=== PATIENT | female | born 1975 | race Caucasian/White ===

== ENCOUNTER 2018-12-13 23:19 | Emergency (ER) | payer SELFPAY ==
--- NOTE | 2018-12-14 02:26 | ER Document Report ---
ED Medical Screen (RME) - General Chief Complaint: Altered Mental Status Stated Complaint: Confusion Time Seen by Provider: 12/14/18 02:20 Notes: 43-year-old female with chief complaint of "something being off". She states for the past 2 weeks she has apparently slept, she feels extremely sluggish, she feels like she cannot think straight. Mother and boyfriend at bedside states she has been talking about "seeing a man who is not talking to her". Patient insists this man is real. She reports suicidal thoughts. She drinks alcohol daily but has not had any since yesterday, she is hypothyroid but states she has not been on her medication for weeks. She states she has had withdrawals from alcohol in the past but denies seizure history. Does not feel that she is withdrawing at this time. States she thinks she might have "a parasite" or something. TRAVEL OUTSIDE OF THE [place] IN LAST 30 DAYS: No - Related Data Allergies/Adverse Reactions: No Known Allergies Allergy (Verified 12/13/18 23:23) Past Medical History Endocrine Medical History: Reports: Hx Hypothyroidism GI Medical History: Reports: Hx Gastroesophageal Reflux Disease - Immunizations Hx Diphtheria, Pertussis, Tetanus Vaccination: No Physical Exam - Vital signs Vitals: Temp Pulse Resp BP Pulse Ox 98.0 F 89 20 124/79 98 12/14/18 00:27 12/14/18 00:27 12/14/18 00:27 12/14/18 00:27 12/14/18 00:27 - General General appearance: Alert In distress: None - Psychological Associated symptoms: Other - Very flat affect at first and then patient started to quietly cry Course - Re-evaluation Re-evalutation: Because of reported complaints including suicidal ideation patient change to triage level 2 I have greeted and performed a rapid initial assessment of this patient. A comprehensive ED assessment and evaluation of the patient, analysis of test results and completion of the medical decision making process will be conducted by additional ED providers. - Vital Signs Vital signs: Temp Pulse Resp BP Pulse Ox 98.0 F 89 20 124/79 98 12/14/18 00:27 12/14/18 00:27 12/14/18 00:27 12/14/18 00:27 12/14/18 00:27
[2018-12-14 03:04] LABS: ABSOLUTE BASOPHILS # (AUTO) 0.1 10^3/uL (0.0-0.2); ABSOLUTE EOSINOPHILS # (AUTO) 0.3 10^3/uL (0.0-0.6); ABSOLUTE LYMPHOCYTES (AUTO) 1.9 10^3/uL (0.5-4.7); ABSOLUTE MONOCYTES (AUTO) 0.4 10^3/uL (0.1-1.4); ABSOLUTE NEUT (AUTO) 3.4 10^3/uL (1.7-8.2); BASOPHILS % (AUTO) 0.8 % (0-2); EOSINOPHILS % (AUTO) 5.2 % (0-6); HEMATOCRIT 43.5 % (36.0-47.0); HEMOGLOBIN 14.9 g/dL (12.0-15.5); LYMPHOCYTES % (AUTO) 30.8 % (13-45); MEAN CORPUSCULAR HEMOGLOBIN 32.3 pg (27.0-33.4); MEAN CORPUSCULAR HGB CONC 34.3 g/dL (32.0-36.0); MEAN CORPUSCULAR VOLUME 94 fl (80-97); MONOCYTES % (AUTO) 7.4 % (3-13); PLATELET COUNT 240 10^3/uL (150-450); RED BLOOD COUNT 4.63 10^6/uL (3.72-5.28); RED CELL DISTRIBUTION WIDTH 13.3 % (11.5-14.0); SEGMENTED NEUTROPHILS % (AUTO) 55.8 % (42-78); TOTAL CELLS COUNTED % (AUTO) 100 %; WHITE BLOOD COUNT 6.1 10^3/uL (4.0-10.5)
[2018-12-14 03:26] LABS: ACETAMINOPHEN < 10 ug/mL (10-30); ALANINE AMINOTRANSFERASE 27 U/L (9-52); ALBUMIN 4.6 g/dL (3.5-5.0); ALCOHOL < 10 mg/dL (NONE DETECTED); ALKALINE PHOSPHATASE 64 U/L (38-126); ANION GAP 9 (5-19); ASPARTATE AMINO TRANSFERASE 20 U/L (14-36); BILIRUBIN,DIRECT 0.3 mg/dL (0.0-0.4); BILIRUBIN,TOTAL 0.4 mg/dL (0.2-1.3); BLOOD UREA NITROGEN 9 mg/dL (7-20); CALCIUM 9.7 mg/dL (8.4-10.2); CARBON DIOXIDE 26 mmol/L (22-30); CHLORIDE 105 mmol/L (98-107); GLUCOSE 104 mg/dL (75-110); POTASSIUM 3.8 mmol/L (3.6-5.0); SALICYLATE < 1.0 mg/dL (2.0-20.0); SODIUM 139.7 mmol/L (137-145); TOTAL PROTEIN 7.6 g/dL (6.3-8.2)
--- NOTE | 2018-12-14 03:40 | ER Document Report ---
ED General - General Chief Complaint: Altered Mental Status Stated Complaint: Confusion Time Seen by Provider: 12/14/18 02:20 Primary Care Provider: RYAN JHAVERI MD [NO LOCAL MD] - Follow up in 3-5 days Notes: Patient is a 43-year-old female with history of hypothyroidism that presents to the emergency department for chief complaint of fatigue, palpitations, confusion. Patient states that over the past 10 days she has been having symptoms including fatigue, nausea, depressive thoughts, and "borderline suicidal thoughts", she has had some nasal congestion as well, she is noticed that her legs have been swelling, and she has had a hallucination that is intermittent, where she sees what appears to be a custom framing specialist in the room, but is not actually there. She does states she drinks alcohol on a daily basis about 32 ounces of wine, her last drink was yesterday around 3:30 PM. She denies prior history of alcohol withdrawal. She does take levothyroxine, but does not remember the last time she took it, could have been a few weeks ago or longer. She states that she is forgetful and does not always take it. Even when she was taking it more regularly she missed several doses on a regular basis. She denies having any chest pain, shortness of breath, difficulty breathing, abdominal pain, dysuria or hematuria. After talking with family members further, and with the patient, they told me that she has been drinking half a bottle to a bottle of NyQuil on almost a daily basis for 2 months now, in addition to her alcohol use. They have noticed that she has been more depressed, and she has been having more arguments recently as well. She does not recall why she started taking the NyQuil other than the may be try to help her sleep, and she feels that she is addicted to it at this point. Past Medical History: Hypothyroidism Past Surgical History: Nasal septoplasty Social History: Admits to smoking cigarettes daily, and daily alcohol use, denies illicit drug use. Family History: Reviewed and noncontributory for presenting illness Allergies: Reviewed, see documented allergy list. REVIEW OF SYSTEMS: Other than noted above, the 12 point review of systems was reviewed with the patient and were negative, all pertinent findings are included in the HPI. PHYSICAL EXAMINATION: Vital signs reviewed, nursing noted reviewed. GENERAL: Well-appearing, well-nourished and in no acute distress. HEAD: Atraumatic, normocephalic. EYES: Eyes appear normal, extraocular movements intact, sclera anicteric, conjunctiva are normal. ENT: nares patent, oropharynx clear without exudates. Moist mucous membranes. NECK: Normal range of motion, supple without lymphadenopathy, thyromegaly palpated LUNGS: Breath sounds clear to auscultation bilaterally and equal. No wheezes rales or rhonchi. HEART: Regular rate and rhythm without murmurs ABDOMEN: Soft, nontender, normoactive bowel sounds. No rebound, guarding, or rigidity. No masses appreciated. EXTREMITIES: Nontender, good range of motion, 1+ bilateral generalized edema in the lower extremities NEUROLOGICAL: No focal neurological deficits. Moves all extremities spontaneously Motor and sensory grossly intact on exam. PSYCH: Dysphoric mood, flat affect SKIN: Warm, Dry, normal turgor, no rashes or lesions noted on exposed skin TRAVEL OUTSIDE OF THE [place] IN LAST 30 DAYS: No - Related Data Allergies/Adverse Reactions: No Known Allergies Allergy (Verified 12/13/18 23:23) Past Medical History - Social History Smoking Status: Current Every Day Smoker Family History: Reviewed & Not Pertinent Endocrine Medical History: Reports: Hx Hypothyroidism GI Medical History: Reports: Hx Gastroesophageal Reflux Disease - Immunizations Hx Diphtheria, Pertussis, Tetanus Vaccination: No Physical Exam - Vital signs Vitals: Temp Pulse Resp BP Pulse Ox 98.0 F 89 20 124/79 98 12/14/18 00:27 12/14/18 00:27 12/14/18 00:27 12/14/18 00:27 12/14/18 00:27 Course - Re-evaluation Re-evalutation: Patient seen and examined, vital signs reviewed. Medical screening testing was ordered including bloodwork, EKG, and toxicology. Results of testing were reviewed. Testing demonstrated unremarkable blood work, negative acetaminophen, salicylate, or alcohol. Patient has been stable from a hemodynamic standpoint. Patient was having nausea was given Zofran, dosed her with IM thiamine 100 mg. After further discussion with the patient and the patient's family members, I do believe this patient is having hyper serotonin symptoms, but not serotonin syndrome, secondary to prolonged use of dextromethorphan, by way of NyQuil, on a daily basis for about 2 months, which likely explains the patient's depressive thoughts, insomnia, hallucinations, and patient is now addicted to this medication. She did wish to speak with the mental health team, for further discussion, and plan going forward for outpatient treatment. Patient was voluntarily willing to stay, to be observed due to having some suicidal thoughts, but they seem to be transient, but having intermittent hallucinations, which I believe is all secondary to taking dextromethorphan, and higher doses over the past 2 months. Despite not taking the patient's levothyroxine, her TSH and free T4 are within normal limits. At this point I feel that the patient is medically cleared and can be further evaluated from a psychiatric standpoint for final disposition from the emergency department. After being monitored in the emergency department, the patient did not want to stay any further, to wait for mental health evaluation, which I felt was reasonable, the patient was not actively having any hallucinations, she had family members at bedside, she was not having any suicidal thoughts or homicidal thoughts at this time, I discussed with her at length, the dangers of taking too much NyQuil specifically acetaminophen overdosing and toxicity, as well as dextromethorphan toxicity, she is advised she could have some withdrawal symptoms, she is also advised to not immediately discontinue drinking alcohol as alcohol withdrawal can be fatal, patient understood this plan of care, and advised to completely discontinue taking any NyQuil, DayQuil or other similar medications, and to follow-up with a primary care physician as well as her waitstaff captain regarding her thyroid functions *Note is created using voice recognition software and may contain spelling, syntax or grammatical errors. Laboratory 12/14/18 12/14/18 12/14/18 02:52 02:52 02:52 WBC 6.1 RBC 4.63 Hgb 14.9 Hct 43.5 MCV 94 MCH 32.3 MCHC 34.3 RDW 13.3 Plt Count 240 Seg Neutrophils % 55.8 Lymphocytes % 30.8 Monocytes % 7.4 Eosinophils % 5.2 Basophils % 0.8 Absolute Neutrophils 3.4 Absolute Lymphocytes 1.9 Absolute Monocytes 0.4 Absolute Eosinophils 0.3 Absolute Basophils 0.1 Sodium 139.7 Potassium 3.8 Chloride 105 Carbon Dioxide 26 Anion Gap 9 BUN 9 Creatinine 0.66 Est GFR ( Amer) > 60 Est GFR (Non-Af Amer) > 60 Glucose 104 Calcium 9.7 Total Bilirubin 0.4 Direct Bilirubin 0.3 Neonat Total Bilirubin Not Reportable Neonat Direct Bilirubin Not Reportable Neonat Indirect Bili Not Reportable AST 20 ALT 27 Alkaline Phosphatase 64 Total Protein 7.6 Albumin 4.6 TSH Free T4 Serum HCG, Qual NEGATIVE Salicylates < 1.0 L Acetaminophen < 10 L Serum Alcohol < 10 12/14/18 02:52 WBC RBC Hgb Hct MCV MCH MCHC RDW Plt Count Seg Neutrophils % Lymphocytes % Monocytes % Eosinophils % Basophils % Absolute Neutrophils Absolute Lymphocytes Absolute Monocytes Absolute Eosinophils Absolute Basophils Sodium Potassium Chloride Carbon Dioxide Anion Gap BUN Creatinine Est GFR ( Amer) Est GFR (Non-Af Amer) Glucose Calcium Total Bilirubin Direct Bilirubin Neonat Total Bilirubin Neonat Direct Bilirubin Neonat Indirect Bili AST ALT Alkaline Phosphatase Total Protein Albumin TSH 2.56 Free T4 1.16 Serum HCG, Qual Salicylates Acetaminophen Serum Alcohol - Vital Signs Vital signs: Temp Pulse Resp BP Pulse Ox 98.2 F 89 22 H 112/68 96 12/14/18 05:01 12/14/18 00:27 12/14/18 05:01 12/14/18 05:01 12/14/18 05:01 - Laboratory Result Diagrams: 12/14/18 02:52 12/14/18 02:52 Laboratory results interpreted by me: 12/14/18 02:52 Salicylates < 1.0 L Acetaminophen < 10 L - EKG Interpretation by Me Additional EKG results interpreted by me: EKG demonstrates sinus rhythm with a ventricular rate of 70 bpm, normal axis, normal intervals, no evidence of acute ischemia, this is compared to prior EKG from 03/16/2014, without significant change. Discharge - Discharge Clinical Impression: Dextromethorphan use disorder, moderate, dependence, Suicidal ideation Condition: Stable Disposition: HOME, SELF-CARE Instructions: Depression ([facility]) Additional Instructions: Please try to back down on your alcohol consumption, but do not stop abruptly as you can go through acute alcohol withdrawal which can be fatal. I strongly encourage you to discontinue drinking and taking any NyQuil, Robitussin or DayQuil, these medications can have adverse effects and can be addictive over time, and are likely explaining all of your symptoms that you have been having. Please follow-up with your waitstaff captain regarding your thyroid medication dosing as well. If you develop worsening symptoms, have further suicidal thoughts, or ideas, or hallucinations or confusion, do not hesitate to return to the emergency department immediately. Referrals: RYAN JHAVERI MD [NO LOCAL MD] - Follow up in 3-5 days
[2018-12-14 03:42] LABS: FREE T4 (FREE THYROXINE) 1.16 ng/dL (0.78-2.19)
[2018-12-14] MEDS ORDERED: ONDANSETRON 4 MG TAB.RAPDIS PO ONE (03:48)
[2018-12-14 03:56] LABS: THYROID STIMULATING HORMONE 2.56 uIU/mL (0.47-4.68)
[2018-12-14] MEDS ORDERED: THIAMINE HCL INJ 200 MG/2 ML VIAL IM ONE (04:15)
[2018-12-14 05:08] LABS: APPEARANCE,URINE CLEAR; BILIRUBIN,URINE NEGATIVE (NEGATIVE); COLOR,URINE STRAW; GLUCOSE, URINE NEGATIVE (NEGATIVE); KETONES,URINE NEGATIVE (NEGATIVE); LEUKOCYTE ESTERASE,URINE NEGATIVE (NEGATIVE); NITRITE,URINE NEGATIVE (NEGATIVE); PROTEIN,URINE NEGATIVE (NEGATIVE); URINE SPECIFIC GRAVITY 1.008; UROBILINOGEN,URINE NEGATIVE mg/dL (<2.0)
[2018-12-14 05:22] LABS: URINE AMPHETAMINES SCREEN NEGATIVE; URINE BARBITURATES SCREEN NEGATIVE; URINE BENZODIAZEPINES SCREEN NEGATIVE; URINE COCAINE SCREEN NEGATIVE; URINE MARIJUANA (THC) SCREEN NEGATIVE; URINE METHADONE SCREEN NEGATIVE; URINE PHENCYCLIDINE SCREEN NEGATIVE
[2018-12-14 05:47] VITALS: BP 112/68
--- NOTE | 2018-12-14 10:57 | EKG REPORT ---
SEVERITY:- BORDERLINE ECG - SINUS RHYTHM BORDERLINE INFERIOR Q WAVES : Confirmed by: Alona Nichole 14-Dec-2018 10:57:08
== END 2018-12-14 06:03 | disposition home or self-care (01) ==
LOC: ER 23:19
DX: R45.851 Suicidal ideations (principal); F11.20 Opioid dependence, uncomplicated; R41.82 Altered mental status, unspecified; R53.83 Other fatigue; R00.2 Palpitations; R11.0 Nausea; F17.210 Nicotine dependence, cigarettes, uncomplicated
CPT/HCPCS: 93005; 99285; 96372; 36415; 84439; 80307 ×4; 84443; 84703; 85025; 80053; 81001; 93010; S0119; J3411

== ENCOUNTER 2020-05-13 15:47 | Emergency (ER) | payer BC ==
--- NOTE | 2020-05-13 16:45 | ER Document Report ---
ED Medical Screen (RME) - General Chief Complaint: Leg Pain Stated Complaint: RIGHT LEG PAIN Time Seen by Provider: 05/13/20 16:36 TRAVEL OUTSIDE OF THE [place] IN LAST 30 DAYS: No - HPI Notes: 05/13/20 16:44 44-year-old female to the emergency department with complaints of right leg swelling and pain in the calf and posterior thigh for the past month. She states that it seems to be getting worse. Has been really bothering her today. She states that she is concerned for possible clot. She states she has significant family history in both a sibling, aunt, father for coagulopathies. She states that she is not on any exogenous hormones although she did take a one-time dose of fertility medicine that she cannot recall the name of. She states that she has not been recently traveling. She is not recently had surgery. She is never had a clot in her leg. I performed a brief medical screening exam on the patient determined that the patient needs further evaluation and management by main side provider. I have placed initial orders to help expedite care. - Related Data Allergies/Adverse Reactions: No Known Allergies Allergy (Verified 12/13/18 23:23) Past Medical History Endocrine Medical History: Reports: Hx Hypothyroidism Renal/ Medical History: Denies: Hx Peritoneal Dialysis GI Medical History: Reports: Hx Gastroesophageal Reflux Disease - Immunizations Hx Diphtheria, Pertussis, Tetanus Vaccination: No
[2020-05-13 17:21] LABS: ABSOLUTE EOSINOPHILS # (AUTO) 0.2 10^3/uL (0.0-0.6); ABSOLUTE LYMPHOCYTES (AUTO) 1.7 10^3/uL (0.5-4.7); ABSOLUTE MONOCYTES (AUTO) 0.3 10^3/uL (0.1-1.4); ABSOLUTE NEUT (AUTO) 1.6 10^3/uL (1.7-8.2); BASOPHILS % (AUTO) 0.9 % (0-2); EOSINOPHILS % (AUTO) 6.3 % (0-6); HEMATOCRIT 40.9 % (36.0-47.0); HEMOGLOBIN 14.4 g/dL (12.0-15.5); MEAN CORPUSCULAR HEMOGLOBIN 32.5 pg (27.0-33.4); MEAN CORPUSCULAR HGB CONC 35.1 g/dL (32.0-36.0); MEAN CORPUSCULAR VOLUME 93 fl (80-97); MONOCYTES % (AUTO) 8.1 % (3-13); PLATELET COUNT 252 10^3/uL (150-450); RED BLOOD COUNT 4.42 10^6/uL (3.72-5.28); RED CELL DISTRIBUTION WIDTH 12.3 % (11.5-14.0); SEGMENTED NEUTROPHILS % (AUTO) 40.7 % (42-78); TOTAL CELLS COUNTED % (AUTO) 100 %; WHITE BLOOD COUNT 3.9 10^3/uL (4.0-10.5)
[2020-05-13 17:27] LABS: PROTHROMBIN TIME 13.4 SEC (11.4-15.4)
[2020-05-13 17:28] LABS: PARTIAL THROMBOPLASTIN TIME 28.4 SEC (23.5-35.8)
[2020-05-13 17:40] LABS: ALBUMIN 4.4 g/dL (3.5-5.0); ALKALINE PHOSPHATASE 62 U/L (38-126); ANION GAP 7 (5-19); ASPARTATE AMINO TRANSFERASE 19 U/L (14-36); BILIRUBIN,DIRECT 0.3 mg/dL (0.0-0.4); BILIRUBIN,TOTAL 0.5 mg/dL (0.2-1.3); BLOOD UREA NITROGEN 13 mg/dL (7-20); CALCIUM 9.5 mg/dL (8.4-10.2); CARBON DIOXIDE 25 mmol/L (22-30); CHLORIDE 107 mmol/L (98-107); GLUCOSE 89 mg/dL (75-110); POTASSIUM 4.1 mmol/L (3.6-5.0); TOTAL PROTEIN 7.3 g/dL (6.3-8.2)
--- NOTE | 2020-05-13 18:40 | ER Document Report ---
ED Extremity Problem, Lower - General Chief Complaint: Leg Pain Stated Complaint: RIGHT LEG PAIN Time Seen by Provider: 05/13/20 16:36 Mode of Arrival: Ambulatory Information source: Patient Notes: 05/13/20 16:41 - ED Nursing Note by ALICIA TEJADA Num: [id number] : 1975 Patient Age: 44 Pt presents to ED for right leg pain. The pt reports the pain is "cramping". 2/5 pain. The pt has a family hx of blood clots so she was concerned she may have a blood clot. The pt has had the pain for 2-3 weeks. No recent travel. The pt has recently taking oral fertility medications. She has had 2 doses. The pt is aox4. Resps e/u. ED Medical Screen ([facility] notes) - General Chief Complaint: Leg Pain Stated Complaint: RIGHT LEG PAIN Time Seen by Provider: 05/13/20 16:36 TRAVEL OUTSIDE OF THE [place] IN LAST 30 DAYS: No - HPI Notes: 05/13/20 16:44 44-year-old female to the emergency department with complaints of right leg swelling and pain in the calf and posterior thigh for the past month. She states that it seems to be getting worse. Has been really bothering her today. She states that she is concerned for possible clot. She states she has significant family history in both a sibling, aunt, father for coagulopathies. She states that she is not on any exogenous hormones although she did take a one-time dose of fertility medicine that she cannot recall the name of. She states that she has not been recently traveling. She is not recently had surgery. She is never had a clot in her leg. I performed a brief medical screening exam on the patient determined that the patient needs further evaluation and management by main side provider. I have placed initial orders to help expedite care. 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 She reports she is had heart palpitations since 2011 with thyroid disease. She saw Dr. Camilo in [place] with a history of thyroidomegaly and nodule. Patient also had for last 3 days pain in her right calf to her right foot especially the arch of her foot. She denies any history of pulmonary embolism but her father brother and 2 aunts have had multiple clots in the past. One aunt from a cerebral aneurysm. A picture of her bilateral feet 3 days ago reveal edema of her right foot. TRAVEL OUTSIDE OF THE [place] IN LAST 30 DAYS: No - Related Data Allergies/Adverse Reactions: No Known Allergies Allergy (Verified 12/13/18 23:23) Home Medications: levothyroxine Past Medical History - General Information source: Patient - Social History Smoking Status: Current Some Day Smoker Cigarette use (# per day): Yes Chew tobacco use (# tins/day): No Smoking Education Provided: Yes Frequency of alcohol use: None Drug Abuse: None Lives with: Family Family History: Reviewed & Not Pertinent Patient has suicidal ideation: No Patient has homicidal ideation: No Endocrine Medical History: Reports: Hx Hypothyroidism Renal/ Medical History: Denies: Hx Peritoneal Dialysis GI Medical History: Reports: Hx Gastroesophageal Reflux Disease - Immunizations Hx Diphtheria, Pertussis, Tetanus Vaccination: No Review of Systems - Review of Systems Constitutional: No symptoms reported EENT: No symptoms reported Cardiovascular: No symptoms reported Respiratory: No symptoms reported Gastrointestinal: No symptoms reported Genitourinary: No symptoms reported Female Genitourinary: No symptoms reported Musculoskeletal: See HPI, Joint pain, Joint swelling, Muscle pain, Leg swelling, Ankle swelling - Right-sided only left side within normal limits. Positive dorsalis pedis bilaterally. Good sensation to both feet. Skin: No symptoms reported Hematologic/Lymphatic: No symptoms reported Neurological/Psychological: No symptoms reported Physical Exam - Vital signs Vitals: Pulse Resp BP Pulse Ox 70 20 125/86 H 98 05/13/20 16:41 05/13/20 16:41 05/13/20 16:41 05/13/20 16:41 Interpretation: Normal - General General appearance: Appears well, Alert - HEENT Head: Normocephalic, Atraumatic Eyes: Normal Pupils: PERRL - Respiratory Respiratory status: No respiratory distress Chest status: Nontender Breath sounds: Normal Chest palpation: Normal - Cardiovascular Rhythm: Regular Heart sounds: Normal auscultation Murmur: No - Abdominal Inspection: Normal Distension: No distension Bowel sounds: Normal Tenderness: Nontender Organomegaly: No organomegaly - Rectal Hemorrhoids: Other - deferred - Genitourinary Bimanuel exam: Other - deferred - Back Back: Normal, Nontender - Extremities General upper extremity: Normal inspection, Nontender, Normal color, Normal ROM, Normal temperature General lower extremity: Tender, Edema - RLE onlt ; LLE WNL, Normal color, Normal ROM, Normal weight bearing. No: Florian's sign - Neurological Neuro grossly intact: Yes Cognition: Normal Orientation: AAOx4 [place] Coma Scale Eye Opening: Spontaneous Vega Coma Scale Verbal: Oriented Vega Coma Scale Motor: Obeys Commands [place] Coma Scale Total: 15 Speech: Normal Motor strength normal: LUE, RUE, LLE, RLE Sensory: Normal - Psychological Associated symptoms: Normal affect, Normal mood - Skin Skin Temperature: Warm Skin Moisture: Dry Skin Color: Normal Course - Vital Signs Vital signs: Temp Pulse Resp BP Pulse Ox 70 20 125/86 H 98 05/13/20 16:41 05/13/20 16:41 05/13/20 16:41 05/13/20 16:41 - Laboratory Result Diagrams: 05/13/20 16:55 05/13/20 16:55 Laboratory results interpreted by me: 05/13/20 16:55 WBC 3.9 L Eos % (Auto) 6.3 H Absolute Neuts (auto) 1.6 L Seg Neutrophils % 40.7 L - Diagnostic Test Radiology reviewed: Reports reviewed - Ultrasound reveals a saphenous vein SVT on right leg. Critical Care Note - Critical Care Note Comments: I discussed findings with patient and she appeared to understand. Discharge - Discharge Clinical Impression: svt of saphenous vein Condition: Good Disposition: HOME, SELF-CARE Additional Instructions: Follow-up with personal doctor about this and with Dr. Washburn if symptoms persist. He is orthopedic doctor. You have SVT of the saphenous vein which occurs around 70% of cases. This may lead to deep vein thrombosis and PE in the future potentially. Right now nonsteroidals and pain medication will work well. Also take glucosamine in order to help build your heparin and take vitamin C for hydroxyproline integrity. Prescriptions: Etodolac [Lodine] 400 mg PO BID #14 tablet Referrals: JEREMIE WASHBURN JR, DO [ACTIVE PROVISIONAL STAFF] - Follow up as needed
--- NOTE | 2020-05-13 18:57 | RADIOLOGY REPORT (SQ) ---
EXAM DESCRIPTION: VENOUS UNILATERAL LOWER IMAGES COMPLETED DATE/TIME: 05/13/2020 6:46 pm REASON FOR STUDY: right leg swelling/pain COMPARISON: None. TECHNIQUE: Dynamic and static sparks scale and color images acquired of the right leg venous system. S elected spectral images acquired with additional compression and augmentation maneuvers. The contrala teral common femoral vein and saphenofemoral junction were also imaged. Images stored on PACS. LIMITATIONS: None. FINDINGS: COMMON FEMORAL: Normal phasicity, compression and augmentation. No visualized echogenic ma terial on sparks scale. No defects on color images. FEMORAL: Normal compression and augmentation. No visualized echogenic material on sparks scale. No defe cts on color images. POPLITEAL: Normal compression, augmentation. No visualized echogenic material on sparks scale. No defec ts on color images. CALF VESSELS: Normal compression, augmentation. No visualized echogenic material on sparks scale. No de fects on color images. GSV and SSV: There is occlusive thrombus in the small saphenous vein. ANY DEEP VENOUS INSUFFICIENCY: Not evaluated. ANY EVIDENCE OF POPLITEAL CYST: No. OTHER: No other significant finding. CONTRALATERAL COMMON FEMORAL VEIN AND SAPHENOFEMORAL JUNCTION: Normal phasicity, compression and augmentation. No visualized echogenic material on sparks scale. No de fects on color images. IMPRESSION: Acute SVT in the small saphenous vein. TECHNICAL DOCUMENTATION: JOB ID: [id number] [employer]- All Rights Reserved Reading location - IP/workstation name: [email or web address]
[2020-05-13] MEDS ORDERED: KETOROLAC TROMETHAMINE INJ/PF 30 MG/1 ML SDV IM ONE (19:24)
[2020-05-13] MEDS ORDERED: ENOXAPARIN SODIUM INJ 100 MG/1 ML DISP.SYRIN SUBCUT SCH (19:30)
[2020-05-13 20:35] VITALS: BP 118/70
== END 2020-05-13 20:34 | disposition home or self-care (01) ==
LOC: ER 15:47
DX: I82.811 Embolism and thrombosis of superficial veins of right lower extremity (principal); R00.2 Palpitations; F17.210 Nicotine dependence, cigarettes, uncomplicated; E03.9 Hypothyroidism, unspecified; Z79.899 Other long term (current) drug therapy
CPT/HCPCS: 99285; 96372; 36415; 83735; 85025; 85610; 85730; 80053; 93971; J1885; J1650